=== PATIENT | female | born 1930 | race Caucasian/White ===

== ENCOUNTER 2016-12-06 17:21 | Emergency (ER) | payer SELFPAY ==
[~2016-12-06] VITALS: Ht 149.9 cm; Wt 42.0 kg
[~2016-12-06 17:21] MED LIST: ASPI81TA3 PO; BENA10TA48 PO; CELE200C PO; CEPH500C PO; LEVO500T72 PO; METO25TA7 PO; SERT50TA6 PO; SIMV10TA PO; TRAM-40 PO
[2016-12-06 17:33] VITALS: Ht 149.9 cm; Wt 42.0 kg
== END 2016-12-06 19:42 | disposition left against medical advice (07) ==
LOC: E/R 17:21
DX: Z53.21 Procedure and treatment not carried out due to patient leaving prior to being seen by health care provider (principal)